=== PATIENT | female | born 1980 | race Caucasian/White ===

== ENCOUNTER 2017-01-25 16:33 | Emergency (ER) | payer OTHER ==
--- NOTE | 2017-01-25 18:45 | ED NURSING NOTES ---
Clinical Report - Nurses [facility] [place] [address] 01/25/2017 16:34 Patient: MARIO YOUNG TRIAGE Acuity: LEVEL 3. Chief Complaint: ABDOMINAL PAIN and DIARRHEA and FLANK PAIN. Alert. No acute distress. SEPSIS SCREEN: Sepsis Screen. Negative (no infection suspected/documented). --16:54 Jaci Mackey R.N. 16:47 01/25/17. BP: 114/67. HR: 66. RR: 12. O2 saturation: 100%. Temp: 98.1 F (oral). Pain level now: 05/24. --16:54 Jaci Mackey R.N. Weight: 55.3 kg stated. Height/Length: 67 inches Per Patient. BMI: 19.1. --16:50 Jaci Mackey R.N. Medications Morphine Sulfate ER Beads Oral. --16:48 Jaci Mackey R.N. Methocarbamol Oral. --16:48 Jaci Mackey R.N. ClonazePAM Oral. --16:49 Jaci Mackey R.N. Adderall Oral. --16:49 Jaci Mackey R.N. Medication/allergy information source: the patient. --16:54 Jaci Mackey R.N. Allergies Lyrica. --16:49 Jaci Mackey R.N. Tramadol. --16:49 Jaci Mackey R.N. Ibuprofen. --16:49 Jaci Mackey R.N. History Arrived by private vehicle. Historian: patient. Accompanied by mother. Primary physician (Paula). Onset. (3 days ago). 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 PAST MEDICAL HX: The patient has had a hysterectomy. SOCIAL HX: Current every day light tobacco smoker (cigarette)- less than 1/2 a pack per day. No alcohol use or drug use. FALL RISK ASSESSMENT: Fall risk assessment completed. No fall risk identified. NUTRITIONAL RISK ASSESSMENT: The nutritional risk assessment revealed no deficiencies. FUNCTIONAL ASSESSMENT: Functional assessment: no impairments noted. LEARNING NEEDS ASSESSMENT: The learning needs assessment revealed no barriers. SKIN INTEGRITY ASSESSMENT: Skin integrity risk assessment completed. No skin integrity risk identified. --16:54 Jaci Mackey R.N. PROBLEMS: ADHD - Attention Deficit Hyperactivity Disorder. PTSD. Anxiety Reaction. Fibromyalgia. Arthritis. --16:50 Jaci Mackey R.N. ADDITIONAL SURGERIES: Hysterectomy. --16:50 Jaci Mackey R.N. Assessment GENERAL / NEURO / PSYCH: Alert. Oriented X 4. Appears in no acute distress. Rakesh Coma Scale: 15- eyes open spontaneously (4); best verbal response- oriented x 4 (5); best motor response- obeys commands (6). Patient appears calm and cooperative. RESPIRATORY: Respirations not labored. CVS: Capillary refill less than 2 seconds. GI / : Abdomen soft. Abdominal tenderness. SKIN: Mucous membranes are pink. Skin is warm and dry. --16:54 Jaci Mackey R.N. Interventions ID band on patient. To treatment room. --16:54 Jaci Mackey R.N. PHYSICAL ASSESSMENT 16:55 01/25/17. Ambulatory to room. GENERAL / NEURO / PSYCH: Alert. Oriented X 4. Appears in no acute distress. HEENT: Mucous membranes are pink. RESPIRATORY: Respirations not labored. CVS: Capillary refill less than 2 seconds. GI / : Abdomen soft and nontender. SKIN: Skin is warm and dry. --16:55 Jaci Mackey R.N. NURSING PROGRESS NOTES 16:55 01/25/17. Patient gowned. Two patient identifiers checked. Call light placed in reach. Side rails up x 1. Bed placed in lowest position. Brakes of bed on. Patient ready for evaluation- chart flagged and PA notified. --16:55 Jaci Mackey R.N. 16:58 01/25/17. Checked patient name and birthdate: patient confirmed. Clean catch urine collected with return of yellow-colored clear urine; sample sent to lab for urinalysis. Specimen labeled in the presence of the patient. --16:58 Jaci Mackey R.N. 17:14 01/25/2017 Site #1 started via IV in the right antecubital space with an 20g angiocath, with aseptic technique and good blood return; one attempt. Blood drawn: rainbow set. Labeled in the presence of the patient and sent to the lab. --17:19 Jaci Mackey R.N. 17:19 01/25/2017 Started bag #1 1000 mL IV Fluids IV NS (Saline); at 1000 mL/hr over 1 hour(s) via site #1 via IV pump. Allergies verified and confirmed 5 rights. IV patency established. IV site checked: no pain, redness, or swelling. IV flushed thoroughly pre- and post-medication administration. --17:19 Jaci Mackey R.N. 17:19 01/25/2017 Zofran (Ondansetron HCl) IVP 4 mg given over 1 minute(s) via site #1. Allergies verified and confirmed 5 rights. IV patency established. IV site checked: no pain, redness, or swelling. IV flushed thoroughly pre- and post-medication administration. IVP given by RN. --17:19 Jaci Mackey R.N. 17:47 01/25/2017 IV Fluids IV NS Discontinued: bag #1 infused. Total amount infused: 1000 mL. IV patency established. IV site checked: no pain, redness, or swelling. IV flushed thoroughly. --17:47 Jaci Mackey R.N. 17:48 01/25/17. The patient reports no complaints and she is calm and resting quietly. ( pt give apple juice.). --17:48 Jaci Mackey R.N. 18:11 01/25/2017 Morphine IVP 8 mg given over 2 minute(s) via site #1. Allergies verified, confirmed 5 rights and sedative warning given to the patient. IV patency established. IV site checked: no pain, redness, or swelling. IV flushed thoroughly pre- and post-medication administration. IVP given by RN. --18:11 Jaci Mackey R.N. DISPOSITION / DISCHARGE Departure time: 18:50 Jan 25 2017. Condition at departure: improved and stable. No learning barriers present. Reviewed medication(s) side effects, precautions and dosing information. Prescription(s) given to the patient. Patient verbalized understanding. Written instructions provided in Kyrgyz. The patient was discharged by the physician paraprofessional education assistant. She was discharged home and accompanied by parent. She left the Emergency Department ambulatory and via private vehicle. Parent driving. --19:02 Jaci Mackey R.N. 19:01 01/25/17. BP: 99/67. HR: 60. RR: 18. O2 saturation: 99%. Temp: 98.3 F (oral). Pain level now: 01/22. --19:02 Jaci Mackey R.N. 18:48 01/25/2017 Site #1 removed upon discharge. Catheter intact. Manual pressure and bandage applied. --19:03 Jaci Mackey R.N. Locked/Released at 01/25/2017 19:03 by Jaci Mackey R.N.
--- NOTE | 2017-01-25 18:45 | ED ORDER SUMMARY ---
..... Patient: MARIO YOUNG OrderSheet [facility] VisitID: [id number] [place] [address] 36y, F Registration Date/Time: 01/25/2017 ORDER SHEET Weight: 55.3 kg (stated) Allergies: Lyrica, Tramadol, Ibuprofen GENERAL ORDERS: UA-Culture if indicated Urgent (16:58 01/25/2017 MWinterer R.N. per protocol) (Ack 17:01 RKaruga) (17:05 MWinterer R.N.) CBC w Diff Urgent (17:02 01/25/2017 EKoroleva P.A.-C) (Ack 17:13 RKaruga) (17:18 MWinterer R.N.) CMP Urgent (17:02 01/25/2017 EKoroleva P.A.-C) (Ack 17:13 RKaruga) (17:18 MWinterer R.N.) MEDICATION ORDERS: IV FLUIDS: IV NS : initial bolus 1000 mL (1000 mL/hr), then 1000 mL/hr for X1 (NOW); Charlie (17:01 01/25/2017 EKoroleva P.A.-C) (Ack 17:05 MWinterer R.N.) (17:19 MWinterer R.N.) Zofran IV 4 mg (NOW) (17:01 01/25/2017 EKoroleva P.A.-C) (Ack 17:05 MWinterer R.N.) (17:19 MWinterer R.N.) Morphine IV 8 mg (HIGH ALERT MEDICATION, NOW) (17:55 01/25/2017 EKoroleva P.A.-C) (Ack 18:00 MWinterer R.N.) (18:11 MWinterer R.N.) ORDER SHEET NOTES: [Electronically signed by Jaci Mackey R.N. (19:03 01/25/2017)] [Electronically signed by Marisel Bragg P.A.-C (19:25 01/25/2017)] [Electronically locked/signed by Jaci Mackey R.N. (19:03 01/25/2017)]
--- NOTE | 2017-01-25 18:45 | ED CLINICAL REPORT ---
Clinical Report - Physicians/Mid Levels [facility] [address] [place] [address] 01/25/2017 16:34 Patient: MARIO YOUNG Time Seen: 17:06 Jan 25 2017. Arrived- By private vehicle. Historian- patient. 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 The patient has had diarrhea and abdominal pain. No black stools, bloody stools, flank pain, history of possible bad food exposure or known contact with a sick individual. No change in routine. Has not recently been camping. The illness is described as moderate. (Pt over the last 3 days patient reports developing bilateral abdominal pain, some flank pain. Reports diarrhea. Denies any sick contacts. Denies any nausea or vomiting. Denies any new medications. Denies any fevers or chills or arthralgia. No melana, no hematochezia. Decrase appetitie.). REVIEW OF SYSTEMS No fever, cough or difficulty breathing. All systems otherwise negative, except as recorded above. PAST HISTORY Problems: ADHD - Attention Deficit Hyperactivity Disorder. PTSD. Anxiety Reaction. Fibromyalgia. Arthritis. Additional Surgeries: Hysterectomy. Medications: Adderall Oral. ClonazePAM Oral. Methocarbamol Oral. Morphine Sulfate ER Beads Oral. Allergies: Ibuprofen. Lyrica. Tramadol. SOCIAL HISTORY Current every day smoker. No alcohol use or drug use. ADDITIONAL NOTES The nursing notes have been reviewed. PHYSICAL EXAM Vital Signs: 01/25/2017 16:47 BP: 114/67. HR: 66. RR: 12. O2 saturation: 100%. Temp: 98.1 F. Pain level now: 8/10. Appearance: Alert. Appears to be in pain. Patient in mild distress. Eyes: Eyes normal inspection. ENT: Ears normal. Nose normal. Neck: Normal inspection. Neck supple. No carotid bruit. CVS: Normal heart rate and rhythm. Heart sounds normal. Respiratory: No respiratory distress. Breath sounds normal. Abdomen: Soft. No organomegaly. No mass. No abdominal tenderness or rebound tenderness. Back: No CVA tenderness. Skin: Normal skin color. LABS, X-RAYS, AND EKG Laboratory Tests: UA-Culture if indicated: (REHAN: 01/25/2017 16:55) ( [facility] 01/25/2017 17:33) Final results Test Result Flag Units (Reference) URINE COLOR YELLOW URINE APPEARANCE CLEAR URINE GLUCOSE NEGATIVE (NEGATIVE) URINE BILIRUBIN NEGATIVE (NEGATIVE) URINE KETONE NEGATIVE (NEGATIVE) URINE SPECIFIC GRAVITY >= 1.030 (1.010-1.030) URINE PH 5.5 (5.0-8.0) URINE PROTEIN NEGATIVE (NEGATIVE) URINE UROBILINOGEN 0.2 EU/dL (0.2-1.0) URINE NITRITE NEGATIVE (NEGATIVE) URINE BLOOD 1+ (NEGATIVE) URINE LEUK ESTERASE NEGATIVE (NEGATIVE) URINE RBC 1-3 rbc/hpf (0-1) URINE WBC 0-1 wbc/hpf (0-1) URINE EPITHELIAL CELLS 0-1 EPI/hpf (0-5) URINE BACTERIA NONE SEEN (NONE SEEN) URINE COMMENT CULT NOT INDICATED 1+ MUCUSURINE CULTURES ARE SET-UP BASED ON THE FOLLOWING CRITERIA:POSITIVE NITRITEPOSITIVE LEUKOCYTE ESTERASEGREATER THAN 10 WHITE BLOOD CELLSMODERATE (2+) OR GREATER BACTERIA CBC w Diff: (REHAN: 01/25/2017 17:15) ( [facility] 01/25/2017 17:34) Final results Test Result Flag Units (Reference) WHITE BLOOD COUNT 8.7 K/uL (4.5-11.5) RED BLOOD COUNT 4.36 M/uL (4.00-5.20) HEMOGLOBIN 13.7 gm/dL (12.0-16.0) HEMATOCRIT 40.9 % (36.0-46.0) MEAN CELL VOLUME 94 fL (80-100) MEAN CORPUSCULAR HGB 31 pg (26-34) MEAN CORPUSCULAR HGB CONC 34 g/dL (31-37) RED CELL DISTRIBUTION WIDTH 12.8 % (11.6-14.8) PLATELET COUNT 228 K/uL (150-400) NEUTROPHIL % 61.6 % (50-75) LYMPH % 28.8 % (25-40) MONO % 7.9 % (3-14) EOSINOPHIL % 1.4 % (0-4) BASOPHIL % 0.3 % (0-2) CMP: (REHAN: 01/25/2017 17:15) ( MsgRcvd 01/25/2017 17:41) Final results Test Result Flag Units (Reference) GLUCOSE 66 L mg/dL (70-110) BUN 13 mg/dL (7-18) CREATININE 0.7 mg/dL (0.6-1.3) Estimated GFR >60 mL/min Estimated GFR- >60 mL/min Note: Persistent reduction over 3 months in eGFR<60 mL/min/1.73 m2 defines CKD. Patients with eGFR values>=60 mL/min/1.73 m2 may also have CKD if evidence ofpersistent proteinuria. Additional information may be foundat www.kidney.org. SODIUM 144 mmol/L (136-145) POTASSIUM 3.8 mmol/L (3.5-5.1) CHLORIDE 106 mmol/L (98-107) CARBON DIOXIDE 29 mmol/L (21-32) CALCIUM 8.7 mg/dL (8.5-10.1) TOTAL PROTEIN 7.4 g/dL (6.4-8.2) ALBUMIN 3.9 g/dL (3.3-5.0) BILIRUBIN, TOTAL 0.4 mg/dL (0.0-1.0) ALKALINE PHOSPHATASE 65 U/L (46-116) AST (SGOT) 11 L U/L (15-37) ALT (SGPT) 24 U/L (12-78) . PROGRESS AND PROCEDURES Course of Care: During the time in the ED, the following DDX were considered: acute surgical abdomen, hemodynamic or metabolic instability, dehydration, gastroenteritis-viral, food borne, or bacterial, food intolerance, irritable or inflammatory bowel, infection, sepsis. Pt with signs of a soft abdomen, no signs of distress, no signs of acute surgical abdomen. No hematochezia. 01/25/2017 19:01 BP: 99/67. HR: 60. RR: 18. O2 saturation: 99%. Temp: 98.3 F. Pain level now: 4/10. Patient is stable. Symptoms better. Patient/family counseled. Differential Diagnosis: I considered gastritis, gastroenteritis, acute appendicitis, diverticulitis, small bowel obstruction, adhesions, biliary colic, hepatitis, splenic injury, intraabdominal abscess, urinary tract infection, ovarian cyst, pelvic inflammatory disease, abdominal aortic aneurysm, myocardial infarction, pneumonia, diabetic ketoacidosis and medications as a possible cause of abdominal pain in this patient. This is a partial list of diagnoses considered. Disposition: Discharged. CLINICAL IMPRESSION Diarrhea Abdominal pain. INSTRUCTIONS Your Current Medications: CONTINUE TAKING THE FOLLOWING MEDICATIONS: Adderall Oral. ClonazePAM Oral. Methocarbamol Oral. Prescription Medications: Zofran (orally disintegrating tablets) 4 mg: take 1 orally every 6 hours for 3 days as needed for nausea. Dispense ten (10). No refill. Substitution is permissible. Reglan 10 mg tablets: take 1 orally every 8 hours as needed for nausea or vomiting. Dispense ten (10). No refills. Substitution is permissible. Follow-up: Follow up with your doctor Sunday. (Electronically signed by Marisel Bragg P.A.-C 01/25/2017 19:25)
--- NOTE | 2017-01-25 18:45 | ED ORDER SUMMARY ---
..... Patient: MARIO YOUNG OrderSheet [facility] VisitID: [id number] [place] [address] 36y, F Registration Date/Time: 01/25/2017 ORDER SHEET Weight: 55.3 kg (stated) Allergies: Lyrica, Tramadol, Ibuprofen GENERAL ORDERS: UA-Culture if indicated Urgent (16:58 01/25/2017 MWinterer R.N. per protocol) (Ack 17:01 RKaruga) (17:05 MWinterer R.N.) CBC w Diff Urgent (17:02 01/25/2017 EKoroleva P.A.-C) (Ack 17:13 RKaruga) (17:18 MWinterer R.N.) CMP Urgent (17:02 01/25/2017 EKoroleva P.A.-C) (Ack 17:13 RKaruga) (17:18 MWinterer R.N.) MEDICATION ORDERS: IV FLUIDS: IV NS : initial bolus 1000 mL (1000 mL/hr), then 1000 mL/hr for X1 (NOW); Charlie (17:01 01/25/2017 EKoroleva P.A.-C) (Ack 17:05 MWinterer R.N.) (17:19 MWinterer R.N.) Zofran IV 4 mg (NOW) (17:01 01/25/2017 EKoroleva P.A.-C) (Ack 17:05 MWinterer R.N.) (17:19 MWinterer R.N.) Morphine IV 8 mg (HIGH ALERT MEDICATION, NOW) (17:55 01/25/2017 EKoroleva P.A.-C) (Ack 18:00 MWinterer R.N.) (18:11 MWinterer R.N.) ORDER SHEET NOTES: [Electronically signed by Jaci Mackey R.N. (19:03 01/25/2017)] [Electronically signed by Marisel Bragg P.A.-C (19:25 01/25/2017)] [Electronically locked/signed by Jaci Mackey R.N. (19:03 01/25/2017)]
--- NOTE | 2017-01-25 18:45 | ED CLINICAL REPORT ---
Clinical Report - Physicians/Mid Levels [facility] [address] [place] [address] 01/25/2017 16:34 Patient: MARIO YOUNG Time Seen: 17:06 Jan 25 2017. Arrived- By private vehicle. Historian- patient. 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 The patient has had diarrhea and abdominal pain. No black stools, bloody stools, flank pain, history of possible bad food exposure or known contact with a sick individual. No change in routine. Has not recently been camping. The illness is described as moderate. (Pt over the last 3 days patient reports developing bilateral abdominal pain, some flank pain. Reports diarrhea. Denies any sick contacts. Denies any nausea or vomiting. Denies any new medications. Denies any fevers or chills or arthralgia. No melana, no hematochezia. Decrase appetitie.). REVIEW OF SYSTEMS No fever, cough or difficulty breathing. All systems otherwise negative, except as recorded above. PAST HISTORY Problems: ADHD - Attention Deficit Hyperactivity Disorder. PTSD. Anxiety Reaction. Fibromyalgia. Arthritis. Additional Surgeries: Hysterectomy. Medications: Adderall Oral. ClonazePAM Oral. Methocarbamol Oral. Morphine Sulfate ER Beads Oral. Allergies: Ibuprofen. Lyrica. Tramadol. SOCIAL HISTORY Current every day smoker. No alcohol use or drug use. ADDITIONAL NOTES The nursing notes have been reviewed. PHYSICAL EXAM Vital Signs: 01/25/2017 16:47 BP: 114/67. HR: 66. RR: 12. O2 saturation: 100%. Temp: 98.1 F. Pain level now: 8/10. Appearance: Alert. Appears to be in pain. Patient in mild distress. Eyes: Eyes normal inspection. ENT: Ears normal. Nose normal. Neck: Normal inspection. Neck supple. No carotid bruit. CVS: Normal heart rate and rhythm. Heart sounds normal. Respiratory: No respiratory distress. Breath sounds normal. Abdomen: Soft. No organomegaly. No mass. No abdominal tenderness or rebound tenderness. Back: No CVA tenderness. Skin: Normal skin color. LABS, X-RAYS, AND EKG Laboratory Tests: UA-Culture if indicated: (REHAN: 01/25/2017 16:55) ( [facility] [place] 01/25/2017 17:33) Final results Test Result Flag Units (Reference) URINE COLOR YELLOW URINE APPEARANCE CLEAR URINE GLUCOSE NEGATIVE (NEGATIVE) URINE BILIRUBIN NEGATIVE (NEGATIVE) URINE KETONE NEGATIVE (NEGATIVE) URINE SPECIFIC GRAVITY >= 1.030 (1.010-1.030) URINE PH 5.5 (5.0-8.0) URINE PROTEIN NEGATIVE (NEGATIVE) URINE UROBILINOGEN 0.2 EU/dL (0.2-1.0) URINE NITRITE NEGATIVE (NEGATIVE) URINE BLOOD 1+ (NEGATIVE) URINE LEUK ESTERASE NEGATIVE (NEGATIVE) URINE RBC 1-3 rbc/hpf (0-1) URINE WBC 0-1 wbc/hpf (0-1) URINE EPITHELIAL CELLS 0-1 EPI/hpf (0-5) URINE BACTERIA NONE SEEN (NONE SEEN) URINE COMMENT CULT NOT INDICATED 1+ MUCUSURINE CULTURES ARE SET-UP BASED ON THE FOLLOWING CRITERIA:POSITIVE NITRITEPOSITIVE LEUKOCYTE ESTERASEGREATER THAN 10 WHITE BLOOD CELLSMODERATE (2+) OR GREATER BACTERIA CBC w Diff: (REHAN: 01/25/2017 17:15) ( [facility] [place] 01/25/2017 17:34) Final results Test Result Flag Units (Reference) WHITE BLOOD COUNT 8.7 K/uL (4.5-11.5) RED BLOOD COUNT 4.36 M/uL (4.00-5.20) HEMOGLOBIN 13.7 gm/dL (12.0-16.0) HEMATOCRIT 40.9 % (36.0-46.0) MEAN CELL VOLUME 94 fL (80-100) MEAN CORPUSCULAR HGB 31 pg (26-34) MEAN CORPUSCULAR HGB CONC 34 g/dL (31-37) RED CELL DISTRIBUTION WIDTH 12.8 % (11.6-14.8) PLATELET COUNT 228 K/uL (150-400) NEUTROPHIL % 61.6 % (50-75) LYMPH % 28.8 % (25-40) MONO % 7.9 % (3-14) EOSINOPHIL % 1.4 % (0-4) BASOPHIL % 0.3 % (0-2) CMP: (REHAN: 01/25/2017 17:15) ( MsgRcvd 01/25/2017 17:41) Final results Test Result Flag Units (Reference) GLUCOSE 66 L mg/dL (70-110) BUN 13 mg/dL (7-18) CREATININE 0.7 mg/dL (0.6-1.3) Estimated GFR >60 mL/min Estimated GFR- >60 mL/min Note: Persistent reduction over 3 months in eGFR<60 mL/min/1.73 m2 defines CKD. Patients with eGFR values>=60 mL/min/1.73 m2 may also have CKD if evidence ofpersistent proteinuria. Additional information may be foundat www.kidney.org. SODIUM 144 mmol/L (136-145) POTASSIUM 3.8 mmol/L (3.5-5.1) CHLORIDE 106 mmol/L (98-107) CARBON DIOXIDE 29 mmol/L (21-32) CALCIUM 8.7 mg/dL (8.5-10.1) TOTAL PROTEIN 7.4 g/dL (6.4-8.2) ALBUMIN 3.9 g/dL (3.3-5.0) BILIRUBIN, TOTAL 0.4 mg/dL (0.0-1.0) ALKALINE PHOSPHATASE 65 U/L (46-116) AST (SGOT) 11 L U/L (15-37) ALT (SGPT) 24 U/L (12-78) . PROGRESS AND PROCEDURES Course of Care: During the time in the ED, the following DDX were considered: acute surgical abdomen, hemodynamic or metabolic instability, dehydration, gastroenteritis-viral, food borne, or bacterial, food intolerance, irritable or inflammatory bowel, infection, sepsis. Pt with signs of a soft abdomen, no signs of distress, no signs of acute surgical abdomen. No hematochezia. 01/25/2017 19:01 BP: 99/67. HR: 60. RR: 18. O2 saturation: 99%. Temp: 98.3 F. Pain level now: 4/10. Patient is stable. Symptoms better. Patient/family counseled. Differential Diagnosis: I considered gastritis, gastroenteritis, acute appendicitis, diverticulitis, small bowel obstruction, adhesions, biliary colic, hepatitis, splenic injury, intraabdominal abscess, urinary tract infection, ovarian cyst, pelvic inflammatory disease, abdominal aortic aneurysm, myocardial infarction, pneumonia, diabetic ketoacidosis and medications as a possible cause of abdominal pain in this patient. This is a partial list of diagnoses considered. Disposition: Discharged. CLINICAL IMPRESSION Diarrhea Abdominal pain. INSTRUCTIONS Your Current Medications: CONTINUE TAKING THE FOLLOWING MEDICATIONS: Adderall Oral. ClonazePAM Oral. Methocarbamol Oral. Prescription Medications: Zofran (orally disintegrating tablets) 4 mg: take 1 orally every 6 hours for 3 days as needed for nausea. Dispense ten (10). No refill. Substitution is permissible. Reglan 10 mg tablets: take 1 orally every 8 hours as needed for nausea or vomiting. Dispense ten (10). No refills. Substitution is permissible. Follow-up: Follow up with your doctor Sunday. (Electronically signed by Marisel Bragg P.A.-C 01/25/2017 19:25)
--- NOTE | 2017-01-25 19:25 | ED MAR SUMMARY ---
..... Medication Administration Record [facility] [address] [place] [address] Patient: MARIO YOUNG Visit ID: [id number] 36y, F Weight: 55.3 kg Height/Length: 67 in BMI: 19.1 ALLERGIES: Ibuprofen, Tramadol, Lyrica Start 17:19 01/25/2017 Jaci Mackey R.N., Stop 17:47 01/25/2017 Jaci Mackey R.N. Medication Administered: IV NS (SALINE), Dose: IV Fluids over 1 hour(s), Rate: 1000 mL/hr, Dispensed: 1000 mL bag, Site: #1 right AC. Medication Ordered: IV NS : initial bolus 1000 mL (1000 mL/hr), then 1000 mL/hr for X1 (NOW); Charlie. Given 17:19 01/25/2017 Jaci Mackey R.N. Medication Administered: ZOFRAN [IVP] (ONDANSETRON HCL), Dose: 4 mg IVP over 1 minute(s), Site: #1 right AC. Medication Ordered: Zofran IV 4 mg (NOW). Given 18:11 01/25/2017 Jaci Mackey R.N. Medication Administered: MORPHINE [IVP], Dose: 8 mg IVP over 2 minute(s), Site: #1 right AC. Medication Ordered: Morphine IV 8 mg (HIGH ALERT MEDICATION, NOW).
--- NOTE | 2017-01-25 19:25 | ED MAR SUMMARY ---
..... Medication Administration Record [facility] [address] [place] [address] Patient: MARIO YOUNG Visit ID: [id number] 36y, F Weight: 55.3 kg Height/Length: 67 in BMI: 19.1 ALLERGIES: Ibuprofen, Tramadol, Lyrica Start 17:19 01/25/2017 Jaci Mackey R.N., Stop 17:47 01/25/2017 Jaci Mackey R.N. Medication Administered: IV NS (SALINE), Dose: IV Fluids over 1 hour(s), Rate: 1000 mL/hr, Dispensed: 1000 mL bag, Site: #1 right AC. Medication Ordered: IV NS : initial bolus 1000 mL (1000 mL/hr), then 1000 mL/hr for X1 (NOW); Charlie. Given 17:19 01/25/2017 Jaci Mackey R.N. Medication Administered: ZOFRAN [IVP] (ONDANSETRON HCL), Dose: 4 mg IVP over 1 minute(s), Site: #1 right AC. Medication Ordered: Zofran IV 4 mg (NOW). Given 18:11 01/25/2017 Jaci Mackey R.N. Medication Administered: MORPHINE [IVP], Dose: 8 mg IVP over 2 minute(s), Site: #1 right AC. Medication Ordered: Morphine IV 8 mg (HIGH ALERT MEDICATION, NOW).
--- NOTE | 2017-01-25 19:25 | ED MED RECONCILIATION SUMMARY ---
Patient: MARIO YOUNG Medication Reconciliation Report [facility] VisitID: [id number] [place] [address] 36y, F Registration Date/Time: 01/25/2017 Weight: 55.3 kg Height/Length: 67 in. BMI: 19.1 ALLERGIES: Ibuprofen, Lyrica, Tramadol The patient's Home Medications are listed below: CONTINUE TAKING THE FOLLOWING MEDICATIONS: Adderall Oral ClonazePAM Oral Methocarbamol Oral THE FOLLOWING MEDICATIONS NEED TO BE RECONCILED: Morphine Sulfate ER Beads Oral The source(s) of the original Home Medication information: patient The following Medications were given to the patient in the Emergency Department: IV NS IV Fluids bolus 0, then 1000 mL/hr, administered: 01/25/2017 5:19:00 PM Zofran [IVP] IVP 4 mg, administered: 01/25/2017 5:19:00 PM Morphine [IVP] IVP 8 mg, administered: 01/25/2017 6:11:00 PM The following Medications were prescribed to the patient: Zofran (orally disintegrating tablets) 4 mg: take 1 orally every 6 hours for 3 days as needed for nausea. Dispense ten (10). No refill. Substitution is permissible. -- Marisel Bragg, P.AAbbie-Minna Reglan 10 mg tablets: take 1 orally every 8 hours as needed for nausea or vomiting. Dispense ten (10). No refills. Substitution is permissible. -- Marisel Bragg PAbbieAAbbie-Minna
--- NOTE | 2017-01-25 19:25 | ED DISCHARGE INSTRUCTIONS ---
Patient: MARIO YOUNG General Instructions [facility] VisitID: [id number] [place] [address] 36y, F Registration Date/Time: 01/25/2017 Diarrhea Abdominal pain. INSTRUCTIONS Your Current Medications: CONTINUE TAKING THE FOLLOWING MEDICATIONS: Adderall Oral. ClonazePAM Oral. Methocarbamol Oral. Prescription Medications: Zofran (orally disintegrating tablets) 4 mg: take 1 orally every 6 hours for 3 days as needed for nausea. Dispense ten (10). No refill. Substitution is permissible. Reglan 10 mg tablets: take 1 orally every 8 hours as needed for nausea or vomiting. Dispense ten (10). No refills. Substitution is permissible. Follow-up: Follow up with your doctor Sunday. ADDITIONAL INFORMATION Diarrhea, Uncertain Cause (Adult, Report Pending) Diarrhea has several possible causes. Commonstomach fluis caused by a virus. Food poisoning, bacteria or parasites are other causes for diarrhea. Only diarrhea caused by bacteria or parasites requires treatment with an antibiotic. Diarrhea from a virus or food poisoning improves with simple home treatment. A stool sample is needed to make the diagnosis of an infection with bacteria or parasites. Up to three stool specimens may be required to diagnose This may take up to two days to get the result. It may be necessary to wait until the stool test is complete to make the diagnosis and select the best antibiotic to prescribe. Home Care: If symptoms are severe, rest at home for the next 24 hours or until you are feeling better. You may use acetaminophen (Tylenol) or ibuprofen (Motrin, Advil) to control fever, unless another medicine was prescribed. [NOTE: If you have chronic liver or kidney disease or ever had a stomach ulcer or GI bleeding, talk with your doctor before using these medicines.] (Aspirin should never be used in anyone under 18 years of age who is ill with a fever. It may cause severe liver damage.) Avoid tobacco, caffeine and alcohol, which may worsen your symptoms. If anti-diarrhea medicine was prescribed, take this only as directed. Sometimes anti-diarrhea medicine can make your condition worse if the cause is an infectious diarrhea. Therefore, anti-diarrhea medicine should not be taken for this condition unless advised by your doctor. During The First 12-24 Hours follow the diet below: BEVERAGES: Sport drinks like Gatorade, soft drinks without caffeine; ellen lulú, mineral water (plain or flavored), decaffeinated tea and coffee. SOUPS: Clear broth, consomm and bouillon DESSERTS: Plain gelatin (Jell-O), popsicles and fruit juice bars. During The Next 24 Hours you may add the following to the above: Hot cereal, plain toast, bread, rolls, crackers Plain noodles, rice, mashed potatoes, chicken noodle or rice soup Unsweetened canned fruit (avoid pineapple), bananas Limit fat intake to less than 15 grams per day by avoiding margarine, butter, oils, mayonnaise, sauces, gravies, fried foods, peanut butter, meat, poultry and fish. Limit fiber; avoid raw or cooked vegetables, fresh fruits (except bananas) and bran cereals. Limit caffeine and chocolate. No spices or seasonings except salt. During The Next 24 Hours Gradually resume a normal diet, as you feel better and your symptoms lessen. Follow Up with your doctor or as advised if you are not improving over the next two days. If you were asked to bring a specimen from home, bring the sample on the day of collection. You may call in 2 days (or as directed) for the results. Get Prompt Medical Attention if any of the following occur: Increasing abdominal pain or constant lower right abdominal pain Continued vomiting (unable to keep liquids down) Frequent diarrhea (more than 5 times a day) Blood in vomit or stool (black or red color) Reduced oral intake Dark urine, reduced urine output Weakness, dizziness, fainting Drowsiness, confusion, stiff neck or seizure Fever of 100.4F (38C) oral or higher, not better with fever medication New rash Abdominal Pain, Unknown Cause (Female) The exact cause of your abdominal (stomach) pain is not certain. This does not mean that this is something to worry about, or the right tests were not done. Everyone likes to know the exact cause of the problem, but sometimes with abdominal pain, there is no clear-cut cause, and this could be a good thing. The good news is that your symptoms can be treated, and you will feel better. Your condition does not seem serious now; however, sometimes the signs of a serious problem may take more time to appear. For this reason,it is important for you to watch for any new symptoms, problems,or worsening of your condition. Over the next few days, the abdominal pain may come and go, or be continuous. Other common symptoms can include nausea and vomiting. Sometimes it can be difficult to tell if you feel nauseous, you may just feel bad and not associate that feeling with nausea. Constipation, diarrhea, and a fever may go along with the pain. The pain may continue even if treated correctly over the following days. Depending on how things go, sometimes the cause can become clear and may require further or different treatment. Additional evaluations, medications, or tests may be needed. Home care Your health care provider may prescribe medications for pain, symptoms, or an infection. Follow the health care provider's instructions for taking these medications. General care Rest until your next exam. No strenuous activities. Try to find positions that ease discomfort. A small pillow placed on the abdomen may help relieve pain. Something warm on your abdomen (such as a heating pad) may help, but be careful not to burn yourself. Diet Do not force yourself to eat, especially if having cramps, vomiting, or diarrhea. Water is important so you do not get dehydrated. Soup may also be good. Sports drinks may also help, especially if they are not too acidic. Make sure you don't drink sugary drinks as this can make things worse. Take liquids in small amounts. Do not guzzle them. Caffeine sometimes makes the pain and cramping worse. Avoid dairy products if you have vomiting or diarrhea. Don't eat large amounts at a time. Wait a few minutes between bites. Eat a diet low in fiber (called a low-residue diet). Foods allowed include refined breads, white rice, fruit and vegetable juices without pulp, tender meats. These foods will pass more easily through the intestine. Avoid whole-grain foods, whole fruits and vegetables, meats, seeds and nuts, fried or fatty foods, dairy, alcohol and spicy foods until your symptoms go away. Follow-up care Follow up with your health care provider as instructed, or if your pain does not begin to improve in the next 24 hours. When to seek medical care Seek prompt medical care if any of the following occur: Pain gets worse or moves to the right lower abdomen New or worsening vomiting or diarrhea Swelling of the abdomen Unable to pass stool for more than three days Fever of 100.4F (38C) or higher, or as directed by your healthcare provider. Blood in vomit or bowel movements (dark red or black color) Jaundice (yellow color of eyes and skin) Weakness, dizziness Chest, arm, back, neck or jaw pain Unexpected vaginal bleeding or missed period Call 911 Call emergency services if any of the following occur: Trouble breathing Confusion Fainting or loss of consciousness Rapid heart rate Seizure Ondansetron Hydrochloride Oral tablet What is this medicine? ONDANSETRON (on GIUSEPPE se kiki) is used to treat nausea and vomiting caused by chemotherapy. It is also used to prevent or treat nausea and vomiting after surgery. How should I use this medicine? Take this medicine by mouth with a glass of water. Follow the directions on your prescription label. Take your doses at regular intervals. Do not take your medicine more often than directed. Talk to your corncob pipe supervisor regarding the use of this medicine in children. Special care may be needed. What side effects may I notice from receiving this medicine? Side effects that you should report to your doctor or health health care legal assistant as soon as possible: allergic reactions like skin rash, itching or hives, swelling of the face, lips or tongue breathing problems dizziness fast or irregular heartbeat feeling faint or lightheaded, falls fever and chills swelling of the hands or feet tightness in the chest Side effects that usually do not require medical attention (report to your doctor or health health care legal assistant if they continue or are bothersome): constipation or diarrhea headache What may interact with this medicine? Do not take this medicine with any of the following medications: -apomorphine -cisapride -dofetilide -dronedarone -pimozide -thioridazine -ziprasidone This medicine may also interact with the following medications: -carbamazepine -phenytoin -rifampicin -tramadol -other medicines that prolong the QT interval (cause an abnormal heart rhythm) What if I miss a dose? If you miss a dose, take it as soon as you can. If it is almost time for your next dose, take only that dose. Do not take double or extra doses. Where should I keep my medicine? Keep out of the reach of children. Store between 2 and 30 degrees C (36 and 86 degrees F). Throw away any unused medicine after the expiration date. What should I tell my health care provider before I take this medicine? They need to know if you have any of these conditions: heart disease history of irregular heartbeat liver disease low levels of magnesium or potassium in the blood an unusual or allergic reaction to ondansetron, granisetron, other medicines, foods, dyes, or preservatives or trying to get breast-feeding What should I watch for while using this medicine? Check with your doctor or health health care legal assistant right away if you have any sign of an allergic reaction. You have been given the following additional information: Diarrhea, Unk Cause (Adult) Report Pendg Abdominal Pain, Unknown Cause, (Female) Ondansetron Hydrochloride Oral tablet (Electronically signed by Marisel Bragg P.A.-C 01/25/2017 19:25)
--- NOTE | 2017-01-25 19:25 | ED MED RECONCILIATION SUMMARY ---
Patient: MARIO YOUNG Medication Reconciliation Report [facility] VisitID: [id number] [place] [address] 36y, F Registration Date/Time: 01/25/2017 Weight: 55.3 kg Height/Length: 67 in. BMI: 19.1 ALLERGIES: Ibuprofen, Lyrica, Tramadol The patient's Home Medications are listed below: CONTINUE TAKING THE FOLLOWING MEDICATIONS: Adderall Oral ClonazePAM Oral Methocarbamol Oral THE FOLLOWING MEDICATIONS NEED TO BE RECONCILED: Morphine Sulfate ER Beads Oral The source(s) of the original Home Medication information: patient The following Medications were given to the patient in the Emergency Department: IV NS IV Fluids bolus 0, then 1000 mL/hr, administered: 01/25/2017 5:19:00 PM Zofran [IVP] IVP 4 mg, administered: 01/25/2017 5:19:00 PM Morphine [IVP] IVP 8 mg, administered: 01/25/2017 6:11:00 PM The following Medications were prescribed to the patient: Zofran (orally disintegrating tablets) 4 mg: take 1 orally every 6 hours for 3 days as needed for nausea. Dispense ten (10). No refill. Substitution is permissible. -- Marisel Bragg, P.AAbbie-Minna Reglan 10 mg tablets: take 1 orally every 8 hours as needed for nausea or vomiting. Dispense ten (10). No refills. Substitution is permissible. -- Marisel Bragg PAbbieAAbbie-Minna
== END 2017-01-25 18:50 | disposition home or self-care (01) ==
LOC: ED SRH 16:33
DX: R19.7 Diarrhea, unspecified (principal); F17.210 Nicotine dependence, cigarettes, uncomplicated; R10.9 Unspecified abdominal pain; Z79.899 Other long term (current) drug therapy
CPT/HCPCS: 90004; 90100; 95059

== ENCOUNTER 2017-03-25 13:22 | Emergency (ER) | payer OTHER ==
--- NOTE | 2017-03-25 15:21 | DIAGNOSTIC IMAGING REPORT ---
PROCEDURE: XR ANKLE 3 OR 4 VIEWS - LEFT INDICATION: TRAUMA/INJURY TECHNIQUE: Four views. COMPARISON: None. FINDINGS: There is mild to moderate soft tissue swelling of the left ankle. Osseous structures and joint spaces are normal. No evidence of fracture. 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 IMPRESSION: 1. Soft tissue swelling. 2. Otherwise negative left ankle.
--- NOTE | 2017-03-25 15:59 | ED NURSING NOTES ---
Clinical Report - Nurses [facility] [place] [address] 03/25/2017 13:23 Patient: MARIO YOUNG TRIAGE Triage time 13:30 Mar 25 2017. Acuity: LEVEL 3. Chief Complaint: RIGHT UPPER EXTREMITY PAIN and SWELLING. Location of symptoms- right 2nd finger. LEFT UPPER EXTREMITY PAIN and SWELLING. Location of symptoms- left thumb, left 2nd finger and left 3rd finger. Alert. MADELINE COMA SCORE: [place] Coma Scale: 15- eyes open spontaneously (4); best verbal response- oriented x 4 (5); best motor response- obeys commands (6). --13:42 Nahum Dutta R.N. 13:32 03/25/17. BP: 110/68. HR: 72. RR: 16. O2 saturation: 100%. Temp: 98.8 F. Pain level now: 04/23. Additional comments: Finger/Wrist pain Bilat. --13:42 Nahum Dutta R.N. Weight: 58.6 kg stated. Height/Length: 67 inches Per Patient. BMI: 20.3. --13:34 Nahum Dutta R.N. Medications Adderall Oral. ClonazePAM Oral. Methocarbamol Oral. Morphine Sulfate ER Beads Oral (Capsule Extended Release 24 Hour 60 mg) 15 mg. --13:39 Nahum Dutta R.N. Bactrim DS Oral. --13:42 Nahum Dutta R.N. Allergies Ibuprofen. Definite Moderate(nausea) (dehydration) Lyrica. Tramadol. --13:39 Nahum Dutta R.N. History Arrived by private vehicle. Historian: patient. Accompanied by family. [place] ( Pain in the fingers and wrists of both hands. Also has pain in the (L) Ankle.). No injury occurred. This occurred (about 2 days ago). 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 Symptoms did not improve after treatment. PAST MEDICAL HX: Immunizations: status is unknown. SOCIAL HX: Light tobacco smoker (cigarette)- less than 1/2 a pack per day. No infectious disease exposure. ABUSE ASSESSMENT: No report of abuse. FALL RISK ASSESSMENT: Fall risk assessment completed. No fall risk identified. NUTRITIONAL RISK ASSESSMENT: The nutritional risk assessment revealed no deficiencies. FUNCTIONAL ASSESSMENT: Functional assessment: no impairments noted. LEARNING NEEDS ASSESSMENT: The learning needs assessment revealed no barriers. SKIN INTEGRITY ASSESSMENT: Skin integrity risk assessment completed. No skin integrity risk identified. --13:42 Nahum Dutta R.N. PROBLEMS: Abdominal Pain. Diarrhea. ADHD - Attention Deficit Hyperactivity Disorder. PTSD. Anxiety Reaction. Fibromyalgia. Arthritis. --13:41 Nahum Dutta R.N. ADDITIONAL SURGERIES: Hysterectomy. --13:41 Nahum Dutta R.N. Interventions ID band on patient. To treatment room. --13:42 Nahum Dutta R.N. PHYSICAL ASSESSMENT Ambulatory to room. GENERAL / NEURO / PSYCH: Oriented X 4. Appears in pain. EXTREMITIES: Extremities exhibit normal ROM. No upper extremity edema. Skin is non-tender on the extremities. Right hand: tenderness. Left hand: tenderness. SKIN: Skin intact. Skin is warm and dry. --13:43 Nahum Dutta R.N. NURSING PROGRESS NOTES Reassurance given. Patient identifiers checked. Call light placed in reach. Side rails up x 1. Bed placed in lowest position. Brakes of bed on. Patient ready for evaluation- chart flagged and PA notified. --13:43 Nahum Dutta R.N. 14:00. Patient ID band checked for patient name and birthdate: patient confirmed. Blood samples drawn from the right antecubital space with 21g butterfly by tech per protocol ; labeled in presence of the patient and sent to lab: rainbow set. --14:02 Pj Snider ER Tech1 15:00 03/25/17. BP: 111/70. HR: 78. RR: 16. O2 saturation: 100%. --15:55 Nahum Dutta R.N. 15:52 03/25/2017 Percocet (Oxycodone-Acetaminophen) PO 5/325 mg Tablets 2 tab given. Allergies verified, confirmed 5 rights and sedative warning given to the patient. --15:57 Nahum Dutta R.N. 15:52 03/25/2017 Keflex (Cephalexin) PO Capsules 500 mg given. Allergies verified and confirmed 5 rights. --15:57 Nahum Dutta R.N. DISPOSITION / DISCHARGE Departure time: 1605. --00:31 Nahum Dutta R.N. 16:00 03/25/17. BP: 106/70. HR: 71. RR: 16. O2 saturation: 100% on room air. Temp: 98.5 F (oral). Pain level now: 02/21. --00:33 Nahum Dutta R.N. 16:05. Condition at departure: improved. No learning barriers present. Discharge instructions provided and reviewed with the patient. Reviewed medication(s) dosing information (prescription given to pt). Reviewed referral to family practice for followup. Patient verbalized understanding. Written instructions provided in Polish. The patient was discharged by the physician. She was discharged home and accompanied by family. She left the Emergency Department ambulatory and via private vehicle. Family member driving. --00:35 Nahum Dutta R.N. Locked/Released at 03/26/2017 0:35 by Nahum Dutta R.N.
--- NOTE | 2017-03-25 15:59 | ED ORDER SUMMARY ---
..... Patient: MARIO YOUNG OrderSheet [facility] VisitID: [id number] [place] [address] 36y, F Registration Date/Time: 03/25/2017 ORDER SHEET Weight: 58.6 kg (stated) Allergies: Ibuprofen, Lyrica, Tramadol GENERAL ORDERS: Ankle 3 or 4V Left Urgent (13:46 03/25/2017 EKoroleva P.A.-C) (Ack 13:50 KHoerner) (14:51 Reba) CBC w Diff Urgent (13:47 03/25/2017 EKoroleva P.A.-C) (Ack 13:50 KHoerner) (14:01 PWeiler ER Tech1) BMP Urgent (13:47 03/25/2017 EKoroleva P.A.-C) (Ack 13:50 KHoerner) (14:01 PWeiler ER Tech1) Sed Rate Urgent (13:47 03/25/2017 EKoroleva P.A.-C) (Ack 13:50 KHoerner) (14:01 PWeiler ER Tech1) CRP Urgent (13:47 03/25/2017 EKoroleva P.A.-C) (Ack 13:50 KHoerner) (14:01 PWeiler ER Tech1) MEDICATION ORDERS: Percocet PO 10/650 mg (HIGH ALERT MEDICATION, NOW) (15:49 03/25/2017 EKoroleva P.A.-C) (15:57 omanelli R.N.) Keflex PO 500 mg (NOW) (15:49 03/25/2017 EKoroleva P.A.-C) (15:57 omanelli R.N.) IV FLUIDS: ORDER SHEET NOTES: [Electronically signed by Marisel BraggAAbbie-C (18:29 03/25/2017)] [Electronically signed by Nahum Dutta R.N. (00:35 03/26/2017)] [Electronically locked/signed by Nahum Dutta R.N. (00:35 03/26/2017)]
--- NOTE | 2017-03-25 15:59 | ED NURSING NOTES ---
Clinical Report - Nurses [facility] [place] [address] 03/25/2017 13:23 Patient: MARIO YOUNG TRIAGE Triage time 13:30 Mar 25 2017. Acuity: LEVEL 3. Chief Complaint: RIGHT UPPER EXTREMITY PAIN and SWELLING. Location of symptoms- right 2nd finger. LEFT UPPER EXTREMITY PAIN and SWELLING. Location of symptoms- left thumb, left 2nd finger and left 3rd finger. Alert. MADELINE COMA SCORE: [place] Coma Scale: 15- eyes open spontaneously (4); best verbal response- oriented x 4 (5); best motor response- obeys commands (6). --13:42 Nahum Dutta R.N. 13:32 03/25/17. BP: 110/68. HR: 72. RR: 16. O2 saturation: 100%. Temp: 98.8 F. Pain level now: 04/23. Additional comments: Finger/Wrist pain Bilat. --13:42 Nahum Dutta R.N. Weight: 58.6 kg stated. Height/Length: 67 inches Per Patient. BMI: 20.3. --13:34 Nahum Dutta R.N. Medications Adderall Oral. ClonazePAM Oral. Methocarbamol Oral. Morphine Sulfate ER Beads Oral (Capsule Extended Release 24 Hour 60 mg) 15 mg. --13:39 Nahum Dutta R.N. Bactrim DS Oral. --13:42 Nahum Dutta R.N. Allergies Ibuprofen. Definite Moderate(nausea) (dehydration) Lyrica. Tramadol. --13:39 Nahum Dutta R.N. History Arrived by private vehicle. Historian: patient. Accompanied by family. [place]Maximo Mitchell [place] ( Pain in the fingers and wrists of both hands. Also has pain in the (L) Ankle.). No injury occurred. This occurred (about 2 days ago). 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 Symptoms did not improve after treatment. PAST MEDICAL HX: Immunizations: status is unknown. SOCIAL HX: Light tobacco smoker (cigarette)- less than 1/2 a pack per day. No infectious disease exposure. ABUSE ASSESSMENT: No report of abuse. FALL RISK ASSESSMENT: Fall risk assessment completed. No fall risk identified. NUTRITIONAL RISK ASSESSMENT: The nutritional risk assessment revealed no deficiencies. FUNCTIONAL ASSESSMENT: Functional assessment: no impairments noted. LEARNING NEEDS ASSESSMENT: The learning needs assessment revealed no barriers. SKIN INTEGRITY ASSESSMENT: Skin integrity risk assessment completed. No skin integrity risk identified. --13:42 Nahum Dutta R.N. PROBLEMS: Abdominal Pain. Diarrhea. ADHD - Attention Deficit Hyperactivity Disorder. PTSD. Anxiety Reaction. Fibromyalgia. Arthritis. --13:41 Nahum Dutta R.N. ADDITIONAL SURGERIES: Hysterectomy. --13:41 Nahum Dutta R.N. Interventions ID band on patient. To treatment room. --13:42 Nahum Dutta R.N. PHYSICAL ASSESSMENT Ambulatory to room. GENERAL / NEURO / PSYCH: Oriented X 4. Appears in pain. EXTREMITIES: Extremities exhibit normal ROM. No upper extremity edema. Skin is non-tender on the extremities. Right hand: tenderness. Left hand: tenderness. SKIN: Skin intact. Skin is warm and dry. --13:43 Nahum Dutta R.N. NURSING PROGRESS NOTES Reassurance given. Patient identifiers checked. Call light placed in reach. Side rails up x 1. Bed placed in lowest position. Brakes of bed on. Patient ready for evaluation- chart flagged and PA notified. --13:43 Nahum Dutta R.N. 14:00. Patient ID band checked for patient name and birthdate: patient confirmed. Blood samples drawn from the right antecubital space with 21g butterfly by tech per protocol ; labeled in presence of the patient and sent to lab: rainbow set. --14:02 Pj Snider ER Tech1 15:00 03/25/17. BP: 111/70. HR: 78. RR: 16. O2 saturation: 100%. --15:55 Nahum Dutta R.N. 15:52 03/25/2017 Percocet (Oxycodone-Acetaminophen) PO 5/325 mg Tablets 2 tab given. Allergies verified, confirmed 5 rights and sedative warning given to the patient. --15:57 Nahum Dutta R.N. 15:52 03/25/2017 Keflex (Cephalexin) PO Capsules 500 mg given. Allergies verified and confirmed 5 rights. --15:57 Nahum Dutta R.N. DISPOSITION / DISCHARGE Departure time: 1605. --00:31 Nahum Dutta R.N. 16:00 03/25/17. BP: 106/70. HR: 71. RR: 16. O2 saturation: 100% on room air. Temp: 98.5 F (oral). Pain level now: 02/21. --00:33 Nahum Dutta R.N. 16:05. Condition at departure: improved. No learning barriers present. Discharge instructions provided and reviewed with the patient. Reviewed medication(s) dosing information (prescription given to pt). Reviewed referral to family practice for followup. Patient verbalized understanding. Written instructions provided in Ecuad[place]. The patient was discharged by the physician. She was discharged home and accompanied by family. She left the Emergency Department ambulatory and via private vehicle. Family member driving. --00:35 Nahum Dutta R.N. Locked/Released at 03/26/2017 0:35 by Nahum Dutta R.N.
--- NOTE | 2017-03-25 15:59 | ED CLINICAL REPORT ---
Clinical Report - Physicians/Mid Levels [facility] [address] [place] [address] 03/25/2017 13:23 Patient: MARIO YOUNG Time Seen: 13:50 Jah 2016. Arrived- By private vehicle. HISTORY OF PRESENT ILLNESS Chief Complaint: (post op ankle swelling). 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 Patient is experiencing moderate pain. (Patient has had L ankle pain and swelling since surgery which is about 4 weeks previously, consulted with nursing line and on-call physician, started on Bactrim, patient had some drainage for the last 3 days, none over the last 2 days. No new injury. Patient has been a splint and has been largely immobilized on the left ankle. In addition patient with history of arthritis to her bilateral hands, and has had hand pain over the last 2-3 days. Patient denies any injury to her arms.). REVIEW OF SYSTEMS The patient complains of pain on weight bearing. All systems otherwise negative, except as recorded above. PAST HISTORY The patient has had a prior injury to the same area (reconstructive surgery). Problems: Abdominal Pain. Diarrhea. ADHD - Attention Deficit Hyperactivity Disorder. PTSD. Anxiety Reaction. Fibromyalgia. Arthritis. Medications: Bactrim DS Oral. Adderall Oral. ClonazePAM Oral. Methocarbamol Oral. Morphine Sulfate ER Beads Oral (Capsule Extended Release 24 Hour 60 mg) 15 mg. Allergies: Ibuprofen. Definite Moderate(nausea) (dehydration) Lyrica. Tramadol. ADDITIONAL NOTES The nursing notes have been reviewed. PHYSICAL EXAM Vital Signs: 03/25/2017 13:32 BP: 110/68. HR: 72. RR: 16. O2 saturation: 100%. Temp: 98.8 F. Pain level now: 7/10. Appearance: Alert. No acute distress. Head: Head atraumatic. ENT: Ears normal. Nose normal. CVS: Normal heart rate and rhythm. Heart sounds normal. Respiratory: No respiratory distress. Abdomen: No visible injury. Soft. Skin: Skin warm. Extremities: Left posterior ankle. No tenderness or swelling. Left lateral ankle: tenderness and swelling. (warmth, sutures intact, c/d). No ecchymosis or puncture wound. Base of the left 5th metatarsal. No tenderness or laceration. Left heel. No tenderness or swelling. (fair rom). LABS, X-RAYS, AND EKG Lt Ankle X-ray: (IMPRESSION: 1. Soft tissue swelling. 2. Otherwise negative left ankle. Electronically Final signed by:Charlie Valladares MD 03/25/2017 3:16:20 PM). Laboratory Tests: CBC w Diff: (REHAN: 03/25/2017 14:00) ( [facility] [place] 03/25/2017 14:33) Final results Test Result Flag Units (Reference) WHITE BLOOD COUNT 5.8 K/uL (4.5-11.5) RED BLOOD COUNT 3.73 L M/uL (4.00-5.20) HEMOGLOBIN 11.6 L gm/dL (12.0-16.0) HEMATOCRIT 34.5 L % (36.0-46.0) MEAN CELL VOLUME 93 fL (80-100) MEAN CORPUSCULAR HGB 31 pg (26-34) MEAN CORPUSCULAR HGB CONC 34 g/dL (31-37) RED CELL DISTRIBUTION WIDTH 12.7 % (11.6-14.8) PLATELET COUNT 180 K/uL (150-400) NEUTROPHIL % 45.6 L % (50-75) LYMPH % 37.5 % (25-40) MONO % 13.0 % (3-14) EOSINOPHIL % 3.4 % (0-4) BASOPHIL % 0.5 % (0-2) SED RATE WESTERGREN 16 mm/hr (0-20) BMP: (REHAN: 03/25/2017 14:00) ( [facility] [place] 03/25/2017 14:31) Final results Test Result Flag Units (Reference) GLUCOSE 151 H mg/dL (70-110) BUN 9 mg/dL (7-18) CREATININE 0.8 mg/dL (0.6-1.3) Estimated GFR >60 mL/min Estimated GFR- >60 mL/min Note: Persistent reduction over 3 months in eGFR<60 mL/min/1.73 m2 defines CKD. Patients with eGFR values>=60 mL/min/1.73 m2 may also have CKD if evidence ofpersistent proteinuria. Additional information may be foundat www.kidney.org. SODIUM 142 mmol/L (136-145) POTASSIUM 4.5 mmol/L (3.5-5.1) CHLORIDE 107 mmol/L (98-107) CARBON DIOXIDE 27 mmol/L (21-32) CALCIUM 8.4 L mg/dL (8.5-10.1) C-REACTIVE PROTEIN < 0.2 mg/dL (0.0-0.9) . PROGRESS AND PROCEDURES Course of Care: YUDI Note: 03/08 Morphine er 15 mg #30 Maximo Guanzon 03/09 Clonazepam 1 mg #60 Maximo Guanzon 03/02 Percocet 10/325 mg Maximo Guanzon #120 02/23/2017 Debridement of left flexor hallucis longus longus musculotendinous junction, removal of os trigonum, excision of soft tissue mass of left posterior anle, debridement of left posterior ankle capsule By Dr. Sharmila Chance M DR. Manley paged for DR. Welsh [id number] Manley, who is familiar with patient, no signs of leukocytosis, fever, no signs of elevated sed rate, crp, patient to f/u outpatient. 03/25/2017 15:00 BP: 111/70. HR: 78. RR: 16. O2 saturation: 100%. Patient is stable. Symptoms better. Patient/family counseled. Disposition: Discharged. CLINICAL IMPRESSION Acute flare of degenerative joint disease involving the right hand and left hand. Post Op Left Ankle Complications with cellulitis. INSTRUCTIONS Elevate affected areas above chest level. (You will have an appointment with Dr. Doll on Sunday the office will call you Sunday to confirm time of the appointment. Continue Bactrim, new prescription for KEFLEX). Prescription Medications: Cephalexin 500 mg: take 1 capsule orally every 8 hours for 10 days. No refill. Follow-up: Follow up with a specialist Sunday. (Electronically signed by Marisel Bragg P.A.-C 03/25/2017 18:29)
--- NOTE | 2017-03-25 15:59 | ED CLINICAL REPORT ---
Clinical Report - Physicians/Mid Levels [facility] [address] [place] [address] 03/25/2017 13:23 Patient: MARIO YOUNG Time Seen: 13:50 Jah 2016. Arrived- By private vehicle. HISTORY OF PRESENT ILLNESS Chief Complaint: (post op ankle swelling). 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 Patient is experiencing moderate pain. (Patient has had L ankle pain and swelling since surgery which is about 4 weeks previously, consulted with nursing line and on-call physician, started on Bactrim, patient had some drainage for the last 3 days, none over the last 2 days. No new injury. Patient has been a splint and has been largely immobilized on the left ankle. In addition patient with history of arthritis to her bilateral hands, and has had hand pain over the last 2-3 days. Patient denies any injury to her arms.). REVIEW OF SYSTEMS The patient complains of pain on weight bearing. All systems otherwise negative, except as recorded above. PAST HISTORY The patient has had a prior injury to the same area (reconstructive surgery). Problems: Abdominal Pain. Diarrhea. ADHD - Attention Deficit Hyperactivity Disorder. PTSD. Anxiety Reaction. Fibromyalgia. Arthritis. Medications: Bactrim DS Oral. Adderall Oral. ClonazePAM Oral. Methocarbamol Oral. Morphine Sulfate ER Beads Oral (Capsule Extended Release 24 Hour 60 mg) 15 mg. Allergies: Ibuprofen. Definite Moderate(nausea) (dehydration) Lyrica. Tramadol. ADDITIONAL NOTES The nursing notes have been reviewed. PHYSICAL EXAM Vital Signs: 03/25/2017 13:32 BP: 110/68. HR: 72. RR: 16. O2 saturation: 100%. Temp: 98.8 F. Pain level now: 7/10. Appearance: Alert. No acute distress. Head: Head atraumatic. ENT: Ears normal. Nose normal. CVS: Normal heart rate and rhythm. Heart sounds normal. Respiratory: No respiratory distress. Abdomen: No visible injury. Soft. Skin: Skin warm. Extremities: Left posterior ankle. No tenderness or swelling. Left lateral ankle: tenderness and swelling. (warmth, sutures intact, c/d). No ecchymosis or puncture wound. Base of the left 5th metatarsal. No tenderness or laceration. Left heel. No tenderness or swelling. (fair rom). LABS, X-RAYS, AND EKG Lt Ankle X-ray: (IMPRESSION: 1. Soft tissue swelling. 2. Otherwise negative left ankle. Electronically Final signed by:Charlie Valladares MD 03/25/2017 3:16:20 PM). Laboratory Tests: CBC w Diff: (REHAN: 03/25/2017 14:00) ( [facility] [place] 03/25/2017 14:33) Final results Test Result Flag Units (Reference) WHITE BLOOD COUNT 5.8 K/uL (4.5-11.5) RED BLOOD COUNT 3.73 L M/uL (4.00-5.20) HEMOGLOBIN 11.6 L gm/dL (12.0-16.0) HEMATOCRIT 34.5 L % (36.0-46.0) MEAN CELL VOLUME 93 fL (80-100) MEAN CORPUSCULAR HGB 31 pg (26-34) MEAN CORPUSCULAR HGB CONC 34 g/dL (31-37) RED CELL DISTRIBUTION WIDTH 12.7 % (11.6-14.8) PLATELET COUNT 180 K/uL (150-400) NEUTROPHIL % 45.6 L % (50-75) LYMPH % 37.5 % (25-40) MONO % 13.0 % (3-14) EOSINOPHIL % 3.4 % (0-4) BASOPHIL % 0.5 % (0-2) SED RATE WESTERGREN 16 mm/hr (0-20) BMP: (REHAN: 03/25/2017 14:00) ( [facility] [place] 03/25/2017 14:31) Final results Test Result Flag Units (Reference) GLUCOSE 151 H mg/dL (70-110) BUN 9 mg/dL (7-18) CREATININE 0.8 mg/dL (0.6-1.3) Estimated GFR >60 mL/min Estimated GFR- >60 mL/min Note: Persistent reduction over 3 months in eGFR<60 mL/min/1.73 m2 defines CKD. Patients with eGFR values>=60 mL/min/1.73 m2 may also have CKD if evidence ofpersistent proteinuria. Additional information may be foundat www.kidney.org. SODIUM 142 mmol/L (136-145) POTASSIUM 4.5 mmol/L (3.5-5.1) CHLORIDE 107 mmol/L (98-107) CARBON DIOXIDE 27 mmol/L (21-32) CALCIUM 8.4 L mg/dL (8.5-10.1) C-REACTIVE PROTEIN < 0.2 mg/dL (0.0-0.9) . PROGRESS AND PROCEDURES Course of Care: YUDI Note: 03/08 Morphine er 15 mg #30 Maximo Guanzon 03/09 Clonazepam 1 mg #60 Maximo Guanzon 03/02 Percocet 10/325 mg Maximo Guanzon #120 02/23/2017 Debridement of left flexor hallucis longus longus musculotendinous junction, removal of os trigonum, excision of soft tissue mass of left posterior anle, debridement of left posterior ankle capsule By Dr. Sharmila Chance M DR. Manley paged for DR. Welsh [address] Manley, who is familiar with patient, no signs of leukocytosis, fever, no signs of elevated sed rate, crp, patient to f/u outpatient. 03/25/2017 15:00 BP: 111/70. HR: 78. RR: 16. O2 saturation: 100%. Patient is stable. Symptoms better. Patient/family counseled. Disposition: Discharged. CLINICAL IMPRESSION Acute flare of degenerative joint disease involving the right hand and left hand. Post Op Left Ankle Complications with cellulitis. INSTRUCTIONS Elevate affected areas above chest level. (You will have an appointment with Dr. Doll on Sunday the office will call you Sunday to confirm time of the appointment. Continue Bactrim, new prescription for KEFLEX). Prescription Medications: Cephalexin 500 mg: take 1 capsule orally every 8 hours for 10 days. No refill. Follow-up: Follow up with a specialist Sunday. (Electronically signed by Marisel Bragg P.A.-C 03/25/2017 18:29)
--- NOTE | 2017-03-25 15:59 | ED ORDER SUMMARY ---
..... Patient: MARIO YOUNG OrderSheet [facility] VisitID: [id number] [place] [address] 36y, F Registration Date/Time: 03/25/2017 ORDER SHEET Weight: 58.6 kg (stated) Allergies: Ibuprofen, Lyrica, Tramadol GENERAL ORDERS: Ankle 3 or 4V Left Urgent (13:46 03/25/2017 EKoroleva P.A.-C) (Ack 13:50 KHoerner) (14:51 Reba) CBC w Diff Urgent (13:47 03/25/2017 EKoroleva P.A.-C) (Ack 13:50 KHoerner) (14:01 PWeiler ER Tech1) BMP Urgent (13:47 03/25/2017 EKoroleva P.A.-C) (Ack 13:50 KHoerner) (14:01 PWeiler ER Tech1) Sed Rate Urgent (13:47 03/25/2017 EKoroleva P.A.-C) (Ack 13:50 KHoerner) (14:01 PWeiler ER Tech1) CRP Urgent (13:47 03/25/2017 EKoroleva P.A.-C) (Ack 13:50 KHoerner) (14:01 PWeiler ER Tech1) MEDICATION ORDERS: Percocet PO 10/650 mg (HIGH ALERT MEDICATION, NOW) (15:49 03/25/2017 EKoroleva P.A.-C) (15:57 omanelli R.N.) Keflex PO 500 mg (NOW) (15:49 03/25/2017 EKoroleva P.A.-C) (15:57 omanelli R.N.) IV FLUIDS: ORDER SHEET NOTES: [Electronically signed by Marisel BraggAAbbie-C (18:29 03/25/2017)] [Electronically signed by Nahum Dutta R.N. (00:35 03/26/2017)] [Electronically locked/signed by Nahum Dutta R.N. (00:35 03/26/2017)]
--- NOTE | 2017-03-26 00:36 | ED DISCHARGE INSTRUCTIONS ---
Patient: MARIO YOUNG General Instructions VisitID: [id number] [place] [address] 36y, F Registration Date/Time: 03/25/2017 Acute flare of degenerative joint disease involving the right hand and left hand. Post Op Left Ankle Complications with cellulitis. INSTRUCTIONS Elevate affected areas above chest level. (You will have an appointment with Dr. Doll on Sunday the office will call you Sunday to confirm time of the appointment. Continue Bactrim, new prescription for KEFLEX). Prescription Medications: Cephalexin 500 mg: take 1 capsule orally every 8 hours for 10 days. No refill. Follow-up: Follow up with a specialist Sunday. ADDITIONAL INFORMATION Osteoarthritis Osteoarthritis (also called Degenerative Joint Disease) is the most common form of arthritis in adults over 50. It is not the same as Rheumatoid Arthritis. The exact cause is not known but may be related to excess wear and tear on the joint over a long period of time. Prior injury to that joint, or repeated stress on a joint can also cause this type of arthritis. Osteoarthritis most often affects the hands, knees, spine and hips (in that order). The most common symptoms are joint stiffness, pain and swelling. Home Care: When a joint is more sore than usual, rest that joint for a day or two. Heat is very helpful. This can be provided by taking hot baths, applying a heating pad for up to 30 minutes at a time. Because symptoms are usually worse in the morning, many patients like to take a hot bath just after awakening to relax the muscle and soothe the joints. Exercise is the most important part of home treatment for osteoarthritis. This prevents the muscles and ligaments around the joint from becoming weak and helps maintain the full range of joint motion. This limits further damage to the joint. If you are overweight, this puts a lot of extra strain on weight-bearing joints of the lower back, hips, knees, feet and ankles. Losing weight will improve your arthritis symptoms in these joints. Talk to your doctor about a safe and effective weight loss program for yourself. Anti-inflammatory medicine such as ibuprofen (Advil, Motrin) or naproxen (Aleve) is often used to treat this condition. If this alone is not helping, your doctor may prescribe a stronger medicine. If narcotic pain medicines have been prescribed, they should be used in addition to anti-inflammatory drugs and only for severe pain. Follow Up with your doctor as advised by our staff. Get Prompt Medical Attention if any of the following occur: Redness or swelling of a painful joint Fever of 100.4F (38C) or higher, or as directed by your healthcare provider Worsening joint pain Cephalexin Monohydrate Oral tablet What is this medicine? CEPHALEXIN (sef a LINDA in) is a cephalosporin antibiotic. It is used to treat certain kinds of bacterial infections It will not work for colds, flu, or other viral infections. How should I use this medicine? Take this medicine by mouth with a full glass of water. Follow the directions on the prescription label. This medicine can be taken with or without food. Take your medicine at regular intervals. Do not take your medicine more often than directed. Take all of your medicine as directed even if you think you are better. Do not skip doses or stop your medicine early. Talk to your anesthesiology tech regarding the use of this medicine in children. While this drug may be prescribed for selected conditions, precautions do apply. What side effects may I notice from receiving this medicine? Side effects that you should report to your doctor or health rn complex care as soon as possible: allergic reactions like skin rash, itching or hives, swelling of the face, lips, or tongue breathing problems pain or trouble passing urine redness, blistering, peeling or loosening of the skin, including inside the mouth severe or watery diarrhea unusually weak or tired yellowing of the eyes, skin Side effects that usually do not require medical attention (report to your doctor or health rn complex care if they continue or are bothersome): gas or heartburn genital or anal irritation headache joint or muscle pain nausea, vomiting What may interact with this medicine? probenecid some other antibiotics What if I miss a dose? If you miss a dose, take it as soon as you can. If it is almost time for your next dose, take only that dose. Do not take double or extra doses. There should be at least 4 to 6 hours between doses. Where should I keep my medicine? Keep out of the reach of children. Store at room temperature between 59 and 86 degrees F (15 and 30 degrees C). Throw away any unused medicine after the expiration date. What should I tell my health care provider before I take this medicine? They need to know if you have any of these conditions: kidney disease stomach or intestine problems, especially colitis an unusual or allergic reaction to cephalexin, other cephalosporins, penicillins, other antibiotics, medicines, foods, dyes or preservatives or trying to get breast-feeding What should I watch for while using this medicine? Tell your doctor or health rn complex care if your symptoms do not begin to improve in a few days. Do not treat diarrhea with over the counter products. Contact your doctor if you have diarrhea that lasts more than 2 days or if it is severe and watery. If you have diabetes, you may get a false-positive result for sugar in your urine. Check with your doctor or health rn complex care. You have been given the following additional information: Osteoarthritis Cephalexin Monohydrate Oral tablet (Electronically signed by Marisel Bragg P.A.-C 03/25/2017 18:29)
--- NOTE | 2017-03-26 00:36 | ED MED RECONCILIATION SUMMARY ---
Patient: MARIO YOUNG Medication Reconciliation Report [facility] VisitID: [id number] [place] [address] 36y, F Registration Date/Time: 03/25/2017 Weight: 58.6 kg Height/Length: 67 in. BMI: 20.3 ALLERGIES: Ibuprofen, Lyrica, Tramadol The patient's Home Medications are listed below: THE FOLLOWING MEDICATIONS NEED TO BE RECONCILED: Adderall Oral Bactrim DS Oral ClonazePAM Oral Methocarbamol Oral Morphine Sulfate ER Beads Oral (60 mg) 15 mg The source(s) of the original Home Medication information: Not obtained. The following Medications were given to the patient in the Emergency Department: Percocet [PO] PO 2 tab, administered: 03/25/2017 3:52:00 PM Keflex [PO] PO 500 mg, administered: 03/25/2017 3:52:00 PM The following Medications were prescribed to the patient: Cephalexin 500 mg: take 1 capsule orally every 8 hours for 10 days. No refill. -- Marisel Bragg, PAbbieASueC
--- NOTE | 2017-03-26 00:36 | ED DISCHARGE INSTRUCTIONS ---
Patient: MARIO YOUNG General Instructions [facility] VisitID: [id number] [place] [address] 36y, F Registration Date/Time: 03/25/2017 Acute flare of degenerative joint disease involving the right hand and left hand. Post Op Left Ankle Complications with cellulitis. INSTRUCTIONS Elevate affected areas above chest level. (You will have an appointment with Dr. Doll on Sunday the office will call you Sunday to confirm time of the appointment. Continue Bactrim, new prescription for KEFLEX). Prescription Medications: Cephalexin 500 mg: take 1 capsule orally every 8 hours for 10 days. No refill. Follow-up: Follow up with a specialist Sunday. ADDITIONAL INFORMATION Osteoarthritis Osteoarthritis (also called Degenerative Joint Disease) is the most common form of arthritis in adults over 50. It is not the same as Rheumatoid Arthritis. The exact cause is not known but may be related to excess wear and tear on the joint over a long period of time. Prior injury to that joint, or repeated stress on a joint can also cause this type of arthritis. Osteoarthritis most often affects the hands, knees, spine and hips (in that order). The most common symptoms are joint stiffness, pain and swelling. Home Care: When a joint is more sore than usual, rest that joint for a day or two. Heat is very helpful. This can be provided by taking hot baths, applying a heating pad for up to 30 minutes at a time. Because symptoms are usually worse in the morning, many patients like to take a hot bath just after awakening to relax the muscle and soothe the joints. Exercise is the most important part of home treatment for osteoarthritis. This prevents the muscles and ligaments around the joint from becoming weak and helps maintain the full range of joint motion. This limits further damage to the joint. If you are overweight, this puts a lot of extra strain on weight-bearing joints of the lower back, hips, knees, feet and ankles. Losing weight will improve your arthritis symptoms in these joints. Talk to your doctor about a safe and effective weight loss program for yourself. Anti-inflammatory medicine such as ibuprofen (Advil, Motrin) or naproxen (Aleve) is often used to treat this condition. If this alone is not helping, your doctor may prescribe a stronger medicine. If narcotic pain medicines have been prescribed, they should be used in addition to anti-inflammatory drugs and only for severe pain. Follow Up with your doctor as advised by our staff. Get Prompt Medical Attention if any of the following occur: Redness or swelling of a painful joint Fever of 100.4F (38C) or higher, or as directed by your healthcare provider Worsening joint pain Cephalexin Monohydrate Oral tablet What is this medicine? CEPHALEXIN (sef a LINDA in) is a cephalosporin antibiotic. It is used to treat certain kinds of bacterial infections It will not work for colds, flu, or other viral infections. How should I use this medicine? Take this medicine by mouth with a full glass of water. Follow the directions on the prescription label. This medicine can be taken with or without food. Take your medicine at regular intervals. Do not take your medicine more often than directed. Take all of your medicine as directed even if you think you are better. Do not skip doses or stop your medicine early. Talk to your records officer regarding the use of this medicine in children. While this drug may be prescribed for selected conditions, precautions do apply. What side effects may I notice from receiving this medicine? Side effects that you should report to your doctor or health cardiac care unit nurse as soon as possible: allergic reactions like skin rash, itching or hives, swelling of the face, lips, or tongue breathing problems pain or trouble passing urine redness, blistering, peeling or loosening of the skin, including inside the mouth severe or watery diarrhea unusually weak or tired yellowing of the eyes, skin Side effects that usually do not require medical attention (report to your doctor or health cardiac care unit nurse if they continue or are bothersome): gas or heartburn genital or anal irritation headache joint or muscle pain nausea, vomiting What may interact with this medicine? probenecid some other antibiotics What if I miss a dose? If you miss a dose, take it as soon as you can. If it is almost time for your next dose, take only that dose. Do not take double or extra doses. There should be at least 4 to 6 hours between doses. Where should I keep my medicine? Keep out of the reach of children. Store at room temperature between 59 and 86 degrees F (15 and 30 degrees C). Throw away any unused medicine after the expiration date. What should I tell my health care provider before I take this medicine? They need to know if you have any of these conditions: kidney disease stomach or intestine problems, especially colitis an unusual or allergic reaction to cephalexin, other cephalosporins, penicillins, other antibiotics, medicines, foods, dyes or preservatives or trying to get breast-feeding What should I watch for while using this medicine? Tell your doctor or health cardiac care unit nurse if your symptoms do not begin to improve in a few days. Do not treat diarrhea with over the counter products. Contact your doctor if you have diarrhea that lasts more than 2 days or if it is severe and watery. If you have diabetes, you may get a false-positive result for sugar in your urine. Check with your doctor or health cardiac care unit nurse. You have been given the following additional information: Osteoarthritis Cephalexin Monohydrate Oral tablet (Electronically signed by Marisel Bragg P.A.-C 03/25/2017 18:29)
--- NOTE | 2017-03-26 00:36 | ED MED RECONCILIATION SUMMARY ---
Patient: MARIO YOUNG Medication Reconciliation Report [facility] VisitID: [id number] [place] [address] 36y, F Registration Date/Time: 03/25/2017 Weight: 58.6 kg Height/Length: 67 in. BMI: 20.3 ALLERGIES: Ibuprofen, Lyrica, Tramadol The patient's Home Medications are listed below: THE FOLLOWING MEDICATIONS NEED TO BE RECONCILED: Adderall Oral Bactrim DS Oral ClonazePAM Oral Methocarbamol Oral Morphine Sulfate ER Beads Oral (60 mg) 15 mg The source(s) of the original Home Medication information: Not obtained. The following Medications were given to the patient in the Emergency Department: Percocet [PO] PO 2 tab, administered: 03/25/2017 3:52:00 PM Keflex [PO] PO 500 mg, administered: 03/25/2017 3:52:00 PM The following Medications were prescribed to the patient: Cephalexin 500 mg: take 1 capsule orally every 8 hours for 10 days. No refill. -- Marisel Bragg, PAbbieASueC
--- NOTE | 2017-03-26 00:36 | ED MAR SUMMARY ---
..... Medication Administration Record [facility] [address] [place] [address] Patient: MARIO YOUNG Visit ID: [id number] 36y, F Weight: 58.6 kg Height/Length: 67 in BMI: 20.3 ALLERGIES: Ibuprofen, Lyrica, Tramadol Given 15:03/25/2017 Nahum Dutta, R.N. Medication Administered: PERCOCET [PO] (OXYCODONE-ACETAMINOPHEN), Dose: 2 tab 5/325 mg Tablets PO. Medication Ordered: Percocet PO 10/650 mg (HIGH ALERT MEDICATION, NOW). Given 15:03/25/2017 Nahum Dutta, R.N. Medication Administered: KEFLEX [PO] (CEPHALEXIN), Dose: 500 mg Capsules PO. Medication Ordered: Keflex PO 500 mg (NOW).
--- NOTE | 2017-03-26 00:36 | ED MAR SUMMARY ---
..... Medication Administration Record [facility] [address] [place] [address] Patient: MARIO YOUNG Visit ID: [id number] 36y, F Weight: 58.6 kg Height/Length: 67 in BMI: 20.3 ALLERGIES: Ibuprofen, Lyrica, Tramadol Given 15:03/25/2017 Nahum Dutta, R.N. Medication Administered: PERCOCET [PO] (OXYCODONE-ACETAMINOPHEN), Dose: 2 tab 5/325 mg Tablets PO. Medication Ordered: Percocet PO 10/650 mg (HIGH ALERT MEDICATION, NOW). Given 15:03/25/2017 Nahum Dutta, R.N. Medication Administered: KEFLEX [PO] (CEPHALEXIN), Dose: 500 mg Capsules PO. Medication Ordered: Keflex PO 500 mg (NOW).
== END 2017-03-25 16:05 | disposition home or self-care (01) ==
LOC: ED SRH 13:22
DX: L76.82 Other postprocedural complications of skin and subcutaneous tissue (principal); L03.116 Cellulitis of left lower limb; M19.041 Primary osteoarthritis, right hand; M19.042 Primary osteoarthritis, left hand; Z79.899 Other long term (current) drug therapy; Z79.2 Long term (current) use of antibiotics; Z88.8 Allergy status to other drugs, medicaments and biological substances; Z79.891 Long term (current) use of opiate analgesic; Z88.5 Allergy status to narcotic agent; Z88.6 Allergy status to analgesic agent